=== PATIENT | female | born 1960 | race Caucasian/White ===

== ENCOUNTER → 2017-12-06 | Outpatient (CLI) | payer OTHER ==
--- NOTE | 2017-12-06 13:51 | CT ---
HISTORY: Abdominal and bilateral flank pain Study: CT abdomen and pelvis without contrast Comparison: None Technique: Multiple axial images of the abdomen and pelvis were obtained from the lung bases to the pubic symphy sis without the administration of IV contrast. Dose reduction techniques including automated exposur e control (AEC) and adjustment of mA and kV were utilized. Findings: The visualized portions of the lung bases are unremarkable. The liver, spleen, pancreas, adrenals, a nd kidneys are grossly unremarkable in appearance given limitations of this noncontrast exam. No CT e vidence of hydronephrosis is identified. The appendix is partially air-filled and otherwise unremarka ble. Evaluation of the stomach, small bowel, and colon is limited without oral contrast. The urinary bladder is unremarkable. A small hiatal hernia is noted. Degenerative changes are seen within the vis ualized spine. A small umbilical hernia containing fat is demonstrated. IMPRESSION: No CT evidence of obstructive uropathy is appreciated. Other findings as noted above. Reported By:
== END ==
LOC: RAD 11:08
PROVIDERS: ATTEND Nurse Practitioner Family
DX: N20.0 Calculus of kidney (principal); M54.5 Low back pain; R10.84 Generalized abdominal pain
CPT/HCPCS: 74176